=== PATIENT | female | born 1965 | race Caucasian/White ===

== ENCOUNTER 2022-03-01 21:28 | Emergency (ER) | payer SELFPAY ==
[2022-03-01 22:03] VITALS: BP 157/70; PULSE 83; RESP 16; TEMP 36.7; O2SAT 98; BMI 35.5
--- NOTE | 2022-03-01 22:29 | XRR_ITS ---
PROCEDURE INFORMATION: Exam: XR Left Femur Exam date and time: 03/01/2022 10:41 PM Age: 56 years old Clinical indication: Injury or trauma; Fall TECHNIQUE: Imaging protocol: Radiologic exam of the Left femur. Views: 2 views. COMPARISON: No relevant prior studies available. FINDINGS: Bones/joints: The mid to distal femur is intact. Primary osteoarthritis in the knee joint with mild joint space narrowing and periarticular spurs. Soft tissues: Unremarkable. XR/XR femur LT min 2V* [id number] IMPRESSION: 1. Intact femur 2. Mild knee primary osteoarthritis
--- NOTE | 2022-03-01 22:29 | XRR_ITS ---
PROCEDURE INFORMATION: Exam: XR Left Hip Exam date and time: 03/01/2022 10:41 PM Age: 56 years old Clinical indication: Hip pain; Left hip; Additional info: Fall TECHNIQUE: Imaging protocol: Radiologic exam of the Left hip. Views: 2 or 3 views hip with pelvis when performed. COMPARISON: No relevant prior studies available. FINDINGS: Bones/joints: Unremarkable. No acute fracture. Soft tissues: Unremarkable. XR/XR hip LT 2-3V wo/w pel* [id number] IMPRESSION: No acute findings.
--- NOTE | 2022-03-01 23:58 | ED_ITS ---
HPI - Extremity Problem General: Chief complaint: Extremity Injury, Lower Stated complaint: LEG PAIN Time Seen by Provider: 03/01/22 22:10 History of Present Illness: 56 yo female patient presents to ER with left hip and femur pain. Pt states she tripped and fell on her leg 3 days ago. Pt did not hit the ground and did not hit her head. Pt is not on blood thinners. Pt denies any neck pain. Pt ambulates but states it just hurts to do so. Associated symptoms: Deny chest pain, fever(s) or rash Review of Systems Const: Denies: fever(s), chills, body aches, change in appetite, change in weight, fatigue, malaise or diaphoresis Eyes: Denies: change in vision, blurry vision, blind spots, photophobia, eye discomfort, eye discharge, eye redness, floaters or seeing flashes ENMT: Denies: throat pain, uvular edema, enlarged tonsils, odynophagia, hoarseness, mouth pain, swelling of lips/tongue, oral sores, bleeding gums, dental pain, dry mouth, ear or mastoid pain, ear discharge, change in hearing, tinnitus, disequilibrium, nasal discharge, nasal congestion, post nasal drip or sinus pain Card: Denies: chest pain, palpitations, irregular heart rhythm, edema, swelling of feet/ankles, lightheadedness, syncope, pre-syncope, dyspnea on exertion, orthopnea, leg pain with exertion or acrocyanosis Resp: Denies: dyspnea, productive cough, non-productive cough, wheezing, stridor, pain on inspiration, change in phlegm color, hemoptysis or chest conges tion GI: Denies: abdominal pain, nausea, vomiting, hematemesis, dysphagia, diarrhea, constipation, GI cramping, change in bowel habits or rectal pain : Denies: flank pain, difficulty voiding, dysuria, urinary frequency, urinary urgency, urinary hesitancy or hematuria Musc: Denies: neck pain, back pain, extremity pain, extremity swelling, joint swelling, joint redness, joint warmth or deformity Skin/Breast: Denies: rash, pruritus, erythema, sores, new lesions, changes in skin color or dry skin Neuro: Denies: headache(s), numbness in extremities, weakness in extremities, sensory changes, lack of coordination, difficulty walking, frequent falls, dizziness, vertigo, confusion, behavioral changes, Slurred speech present, difficulty communicating thoughts or seizure-like activity Psych: Denies: anxiety, depression, suicidal ideation or homicidal ideation Endo: Denies: polyuria, polydipsia, tired all the time, cold intolerance, excessive sweating, flushing, hot flashes or heat intolerance Wilfredo/Lymph: Denies: easy bruising, easy bleeding, petechiae, purpura, enlarged lymph nodes or tender lymph nodes All/Imm: Denies: urticaria, throat swelling, tongue swelling, facial swelling, acute wheezing or itchy eyes Physical Exam Const: COMMON NORMALS: no acute distress, patient oriented x3, healthy appearing, alert and well nourished GENERAL APPEARANCE: cooperative, comfortable, well kempt and well developed; not ill appearing ORIENTATION/CONSCIOUSNESS: Yes awake, Yes oriented to person, Yes oriented to place and Yes oriented to time HENMT: COMMON NORMALS: normocephalic and atraumatic HEAD & SCALP: normocephalic and atraumatic THROAT: no uvular edema Neck/C-Spine: COMMON NORMALS: full ROM, no lymphadenopathy, supple, no meningeal signs, no JVD and Thyroid normal GENERAL: Yes normal visual inspection and Yes trachea midline THYROID: Thyroid normal CERVICAL SPINE: Yes cervical ROM normal Lymph: LYMPHATIC: no lymphadenopathy noted and no lymphedema noted Chest: COMMONS NORMALS: normal inspection of the chest and normal palpation of entire chest wall Resp: COMMON NORMALS: normal respiratory effort, No retractions, No use of accessory muscles and clear to auscultation bilaterally EFFORT & INSPECTION: Yes able to speak in complete sentences and Yes symmetric chest movement AUSCULTATION: clear to auscultation bilaterally Cardio: COMMON NORMALS: no JVD, regular rate and regular rhythm RATE: regular rate RHYTHM: regular rhythm GI: COMMON NORMALS: Normal to inspection, nondistended, normoactive bowel sounds present, Soft to palpation, non-tender, No hepatosplenomegaly present, no masses and no bruits INSPECTION: Yes normal to inspection AUSCULTATION: Yes normoactive bowel sounds PALPATION: Yes Soft to palpation and Yes No hepatosplenomegaly present PERCUSSION: normal to percussion RECTAL EXAM: deferred Back/Pelvis: COMMON NORMALS: thoracic and lumbar spine normal to inspection, no thoracic nor lumbar tenderness, thoraco-lumbar ROM normal and straight leg raise negative bilaterally THORACIC SPINE/UPPER BACK: Yes normal to inspection LUMBAR SPINE/LOWER BACK: Yes normal to inspection Extremity: COMMON NORMALS: normal to inspection, full ROM and capillary refill normal GENERAL: Yes normal exam except as noted Neuro: COMMON NORMALS: patient oriented x3, CN's II-XII intact bilaterally, moves all extremities, no focal motor deficits, no sensory deficits noted, deep tendon reflexes 2+ bilaterally and gait normal SENSORIUM/ORIENTATION: Yes alert, Yes oriented to person, Yes oriented to place and Yes oriented to time MENINGEAL SIGNS: Yes no meningeal signs CRANIAL NERVES: Yes CN normal except as noted SPEECH: speech normal GAIT: Yes Normal gait present SENSORY EXAM: Yes extremities MOTOR EXAM: 5/5 motor strength present throughout Psych: COMMON NORMALS: mental status grossly normal, Normal thought process present, cooperative, normal affect, speech normal, activity/motor behavior normal, denies hallucinations, denies homicidal ideation and denies suicidal ideation APPEARANCE: Yes grossly normal and Yes well kempt ATTITUDE: Yes calm ACTIVITY/MOTOR BEHAVIOR: Yes appropriate eye contact SPEECH: Yes normal speech THOUGHT PROCESS: Normal thought process present THOUGHT CONTENT: Yes Normal thought content present ATTENTION/CONCENTRATION: Yes attention grossly intact MEMORY/COGNITION: Yes memory grossly intact INSIGHT: Good insight present (Psych) JUDGEMENT: Good judgement present (Psych) Skin: COMMON NORMALS: no rashes or lesions noted, no wounds, turgor normal, no jaundice, no petechiae and no mottling GENERAL SKIN EXAM: no rashes or les ions noted and turgor normal Course Vital Signs: Vital signs: Vital Signs Temperature 98.0 F 03/01/22 22:03 Pulse Rate 83 03/01/22 22:03 Respiratory Rate 16 03/01/22 22:03 Blood Pressure 157/70 03/01/22 22:03 Pulse Oximetry 98 03/01/22 22:03 Oxygen Delivery Me thod 03/01/22 22:03 MDM - Extremity (Nontraumatic) Medical Decision Making Patient is well appearing non toxic and in no acute distress. 56 yo female patient presents to ER with left hip and femur pain. Pt states she tripped and fell on her leg 3 days ago. Pt did not hit the ground and did not hit her head. Pt is not on blood thinners. Pt denies any neck pain. Pt ambulates but states it just hurts to do so. Pt is NVI distally. Pt ambulates with assistance. xrays are negative for any acute findings or concerns. I discussed return precautions and home care with patient Lab Data Radiology Impressions Femur X-Ray 03/01/22 22:29 IMPRESSION: 1. Intact femur 2. Mild knee primary osteoarthritis Hip/Pelvis X-Ray 03/01/22 22:29 IMPRESSION: No acute findings. Discharge Plan Discharge Condition: Stable Coding Level of Care Code ED Wild[employer] Prevention Specialist for Shane Jarvis
== END 2022-03-02 00:22 | disposition home or self-care (01) ==
PROVIDERS: Emergency Provider Registered Nurse
DX: M79.605 Pain in left leg (principal)
CPT/HCPCS: 73502; 73552; 99283

== ENCOUNTER 2023-01-10 06:00 | Outpatient (RCR) | payer OTHER, SELFPAY | END 2023-01-11 23:59 | disposition home or self-care (01) | LOC: TPT 06:00 | PROVIDERS: Visit Provider Neurological Surgery | DX: Z45.41 Encounter for adjustment and management of cerebrospinal fluid drainage device (principal) | CPT/HCPCS: 97163 ==

== ENCOUNTER 2023-01-12 06:00 | Outpatient (RCR) | payer OTHER, SELFPAY | END 2023-02-10 23:59 | disposition home or self-care (01) | LOC: TPT 06:00 | PROVIDERS: Visit Provider Neurological Surgery | DX: Z45.41 Encounter for adjustment and management of cerebrospinal fluid drainage device (principal) | CPT/HCPCS: 97110; 97112 ==

== ENCOUNTER → 2023-06-20 08:01 | Outpatient (BNVA) | payer OTHER, BC, MEDICAID, SELFPAY | PROVIDERS: PCP Nurse Practitioner Family; Referring Provider Nurse Practitioner Family; Visit Provider Internal Medicine | DX: E04.2 Nontoxic multinodular goiter (principal); Z13.820 Encounter for screening for osteoporosis; E05.90 Thyrotoxicosis, unspecified without thyrotoxic crisis or storm; Z87.81 Personal history of (healed) traumatic fracture | CPT/HCPCS: 36415; 83516; 84439; 84443; 84480; 86800 ==

== ENCOUNTER 2023-07-03 07:38 | Outpatient (CLI) | payer OTHER, BC, MEDICAID, SELFPAY ==
--- NOTE | 2023-07-03 07:55 | NM_ITS ---
WS: [id number] NUCLEAR MEDICINE 24 HOUR I-123 THYROID UPTAKE INDICATION: Thyroid nodules TECHNIQUE: I-123 24 HOUR THYROID UPTAKE WITH PLANAR IMAGING. 141 [facility] 123 COMPARISON: None FINDINGS: Increased 24-hour uptake 58.35% Intense increased uptake in a RIGHT mid thyroid nodule. Heterogeneous activity in the LEFT thyroid wi th suggestion of a few small slightly hot nodules. Recommend further evaluation with ultrasound. NORMAL 24H THRYOID UPTAKE 8-35% IMPRESSION: Increased 24-hour thyroid uptake 58.35% Recommend further evaluation with thyroid ultrasound.
== END 2023-07-03 07:39 | disposition home or self-care (01) ==
PROVIDERS: PCP Nurse Practitioner Family; Visit Provider Internal Medicine
DX: E04.2 Nontoxic multinodular goiter (principal); E05.90 Thyrotoxicosis, unspecified without thyrotoxic crisis or storm
CPT/HCPCS: 36415; 78014; 83516; 84439; 84443; 84480; 86800; A9516

== ENCOUNTER 2023-07-04 13:01 | Outpatient (CLI) | payer OTHER, BC, MEDICAID, SELFPAY ==
--- NOTE | 2023-07-04 14:00 | XR_ITS ---
WS: [id number] SCREENING DEXA SCAN [facility] CLINICAL INFORMATION: osteoporosis COMPARISON: None. FINDINGS: The L1-L4 bone mineral density measures 0.69. This corresponds to a T score score of -4.3 and Z score of -3.8. Left femoral neck bone mineral density measures 0.669 g/cm2. This corresponds to a T score of -2.7 an d Z score of -2.3. Right femoral neck bone mineral density measures 0.649 g/cm2. This corresponds to a T score -2.8of an d Z score of -2.4. Mean femoral neck bone mineral density measures 0.659 g/cm2. This corresponds to a T score of -2.8 an d Z score of -2.4. IMPRESSION: Osteoporosis lumbar spine. Osteoporosis femoral necks. Patient's FRAX calculated 10 year probability for major osteoporotic fracture is 25.8% and osteoporot ic hip fracture is 11.5%.
== END 2023-07-04 13:02 | disposition home or self-care (01) ==
LOC: RAD 13:01
PROVIDERS: PCP Nurse Practitioner Family; Visit Provider Internal Medicine
DX: Z13.820 Encounter for screening for osteoporosis (principal); M81.0 Age-related osteoporosis without current pathological fracture; Z87.81 Personal history of (healed) traumatic fracture
CPT/HCPCS: 77080

== ENCOUNTER → 2023-07-06 09:14 | Outpatient (BNVA) | payer OTHER, BC, MEDICAID, SELFPAY | PROVIDERS: PCP Nurse Practitioner Family; Visit Provider Internal Medicine | DX: E05.90 Thyrotoxicosis, unspecified without thyrotoxic crisis or storm (principal) | CPT/HCPCS: 84439; 84443; 84480 ==

== ENCOUNTER → 2023-07-19 10:35 | Outpatient (BNVA) | payer OTHER, BC, MEDICAID, SELFPAY | PROVIDERS: PCP Nurse Practitioner Family; Visit Provider Internal Medicine | DX: E05.90 Thyrotoxicosis, unspecified without thyrotoxic crisis or storm (principal); E04.2 Nontoxic multinodular goiter | CPT/HCPCS: 84439; 84480 ==

== ENCOUNTER → 2023-08-07 09:27 | Outpatient (BNVA) | payer OTHER, BC, MEDICAID, SELFPAY | PROVIDERS: PCP Nurse Practitioner Family; Visit Provider Internal Medicine | DX: E05.90 Thyrotoxicosis, unspecified without thyrotoxic crisis or storm (principal); Z87.81 Personal history of (healed) traumatic fracture | CPT/HCPCS: 80053; 82306; 82310; 83970; 84439; 84443; 84480 ==

== ENCOUNTER → 2023-09-25 08:55 | Outpatient (BNVA) | payer OTHER, BC, MEDICAID, SELFPAY | PROVIDERS: PCP Nurse Practitioner Family; Visit Provider Internal Medicine | DX: E04.2 Nontoxic multinodular goiter (principal); E05.90 Thyrotoxicosis, unspecified without thyrotoxic crisis or storm; E55.9 Vitamin D deficiency, unspecified | CPT/HCPCS: 36415; 80053; 82306; 84439; 84443; 84480 ==

== ENCOUNTER → 2023-12-03 10:54 | Outpatient (BNVA) | payer OTHER, BC, MEDICAID, SELFPAY | PROVIDERS: PCP Nurse Practitioner Family; Visit Provider Internal Medicine | DX: E05.90 Thyrotoxicosis, unspecified without thyrotoxic crisis or storm (principal); E55.9 Vitamin D deficiency, unspecified; E04.2 Nontoxic multinodular goiter | CPT/HCPCS: 80053; 82306; 84439; 84443; 84480 ==

== ENCOUNTER → 2024-01-21 09:47 | Outpatient (BNVA) | payer OTHER, BC, MEDICAID, SELFPAY | PROVIDERS: PCP Nurse Practitioner Family; Visit Provider Internal Medicine | DX: E05.90 Thyrotoxicosis, unspecified without thyrotoxic crisis or storm (principal) | CPT/HCPCS: 84439; 84443; 84480 ==

== ENCOUNTER → 2024-04-08 13:33 | Outpatient (BNVA) | payer OTHER, BC, MEDICAID, SELFPAY | PROVIDERS: PCP Nurse Practitioner Family; Visit Provider Internal Medicine | DX: E05.90 Thyrotoxicosis, unspecified without thyrotoxic crisis or storm (principal) | CPT/HCPCS: 84439; 84443; 84480 ==

== ENCOUNTER → 2024-07-18 10:16 | Outpatient (BNVA) | payer OTHER, BC, MEDICAID, SELFPAY | PROVIDERS: PCP Nurse Practitioner Family; Visit Provider Internal Medicine | DX: E05.90 Thyrotoxicosis, unspecified without thyrotoxic crisis or storm (principal); E04.2 Nontoxic multinodular goiter | CPT/HCPCS: 84439; 84443; 84480 ==

== ENCOUNTER 2024-08-15 07:48 | Outpatient (CLI) | payer OTHER, BC, MEDICAID, SELFPAY ==
--- NOTE | 2024-08-15 08:15 | US_ITS ---
WS: [id number] THYROID ULTRASOUND HISTORY: Follow-up nuclear medicine thyroid uptake scan. Evaluate RIGHT mid thyroid and LEFT thyroid for nodules. COMPARISON: Nuclear medicine thyroid uptake 07/03/2023 Right lobe: 3.4 cm x 4.2 cm x 7.4 cm (w x ap x l). Volume: 50.7 cm3. Thyroid is enlarged and very heterogeneous and nodular. There are cystic components. Areas of increased and decreased echogenicity. Thyroid is also hypervascular. Multiple nodules throughout the gland. Nodule noted on thyroid uptake scan is slightly hypoechoic with increased vascularity and cystic comp onents measuring 3.2 x 1.3 x 2.9 cm. Left lobe: 6.1 cm x 5.0 cm x 8.5 cm (w x ap x l). Volume: 125.2 cm3. Enlarged heterogeneous thyroid. Ill-defined nodules throughout increased vascularity. Areas of increased and decreased echogenicity. Isthmus: 0.9 cm. US/US thyroid [id number] IMPRESSION: 1. Thyroid gland is diffusely enlarged and heterogeneous with numerous ill-def ined nodules and increased vascularity. This is most likely a goiter and possib le superimposed acute thyroiditis. Suggest follow-up ultrasound in 1 year. Ther e is no one discrete nodule that appears more concerning than others. No cold n odule was identified on the nuclear medicine scan.
== END 2024-08-15 07:49 | disposition home or self-care (01) ==
LOC: RAD 07:52
PROVIDERS: PCP Nurse Practitioner Family; Visit Provider Internal Medicine
DX: R45.86 Emotional lability (principal); E55.9 Vitamin D deficiency, unspecified; Z13.820 Encounter for screening for osteoporosis; Z87.81 Personal history of (healed) traumatic fracture; E04.2 Nontoxic multinodular goiter; E05.90 Thyrotoxicosis, unspecified without thyrotoxic crisis or storm; R93.89 Abnormal findings on diagnostic imaging of other specified body structures
CPT/HCPCS: 76536

== ENCOUNTER → 2024-09-16 08:35 | Outpatient (BNVA) | payer OTHER, BC, MEDICAID, SELFPAY | PROVIDERS: PCP Nurse Practitioner Family; Visit Provider Internal Medicine | DX: R45.86 Emotional lability (principal); E55.9 Vitamin D deficiency, unspecified; E04.2 Nontoxic multinodular goiter; E05.90 Thyrotoxicosis, unspecified without thyrotoxic crisis or storm; Z87.81 Personal history of (healed) traumatic fracture; Z13.820 Encounter for screening for osteoporosis | CPT/HCPCS: 80053; 82306; 84439; 84443; 84480 ==

== ENCOUNTER → 2024-11-21 10:37 | Outpatient (BNVA) | payer OTHER, BC, MEDICAID, SELFPAY | PROVIDERS: PCP Nurse Practitioner Family; Visit Provider Internal Medicine | DX: E05.90 Thyrotoxicosis, unspecified without thyrotoxic crisis or storm (principal) | CPT/HCPCS: 84439; 84443 ==